=== PATIENT | female | born 1995 | race Caucasian/White ===

== ENCOUNTER 2020-10-13 16:11 | Emergency (ER) | payer BC ==
[2020-10-13] MEDS ORDERED: Ondansetron PF 4 MG/2 ML Vial ONE (16:52)
[2020-10-13 17:12] LABS: Bilirubin Neg (Negative); Blood, Urine Negative (Negative); Clarity Clear (Clear); Glucose, Urine (Dipstick) Normal (Negative); Ketone, Urine Negative (Negative); Leukocyte Negative (Negative); Nitrite Negative (Negative); Protein, Urine (Dipstick) Negative (Neg-Trace); Specific Gravity, Urine 1.015 (1.002-1.036); Urobilinogen Normal mg/dL (Less than 2)
[2020-10-13 17:12] LABS: #Basophils 0.1 10x3/uL (0.0-0.2); #Eosinphils 0.1 10x3/uL (0.0-0.5); #Monocytes 0.4 10x3/uL (0.0-1.1); #Neutrophils 4.4 10x3/uL (1.5-8.4); %Basophils 0.8 % (0.0-2.0); %Eosinophils 2.1 % (0.0-6.0); %Monocytes 6.7 % (0.0-10.0); %Neutrophils 71.2 % (40.0-75.0); Hemoglobin 11.6 g/dL (12.0-15.5); Mean Corpuscular HGB CONC 31.9 g/dL (32.0-36.0); Mean Corpuscular Volume 81.6 fl (81.6-98.3); Mean Platelet Volume 10.5 fl (7.4-10.4); Platelet Count 276 10x3/uL (150-450); RBC Distribution Width 15.1 % (11.5-14.5); Red Blood Cell (RBC) Count 4.46 10x6/uL (3.90-5.03); White Blood Cell (WBC) Count 6.1 10x3/uL (3.5-10.5)
[2020-10-13 17:26] LABS: ALT (SGPT) 103 U/L (8-55); AST (SGOT) 76 U/L (5-34); Albumin 4.6 g/dL (3.5-5.0); Alkaline Phosphatase 93 U/L (40-110); Anion Gap 14 mmol/L (10-20); BUN (Urea Nitrogen) 9 mg/dL (7.0-18.7); Bilirubin, Total 0.1 mg/dL (0.2-1.2); Calc. Creatinine Clearance 0 mL/min (70-130); Calcium 9.7 mg/dL (7.8-10.44); Carbon Dioxide 26 mmol/L (22-29); Chloride 103 mmol/L (98-107); Globulin 3.2 g/dL (2.4-3.5); Glucose 114 mg/dL (70-105); Lipase 19 U/L (8-78); Potassium 4.3 mmol/L (3.5-5.1); Protein, Total 7.8 g/dL (6.0-8.3); Sodium 139 mmol/L (136-145)
== END 2020-10-13 17:45 | disposition home or self-care (01) ==
LOC: CSHERS 16:11
DX: A04.72 Enterocolitis due to Clostridium difficile, not specified as recurrent (principal); E86.0 Dehydration
CPT/HCPCS: 80053; 81003; 83690; 85025; 96374; J0500; J2405

== ENCOUNTER 2022-05-04 11:45 | Emergency (ER) | payer OTHER ==
[2022-05-04 13:06] LABS: #Eosinphils 0.1 10x3/uL (0.0-0.5); #Monocytes 0.2 10x3/uL (0.0-1.1); #Neutrophils 3.1 10x3/uL (1.5-8.4); %Basophils 0.6 % (0.0-2.0); %Lymphocytes 28.5 % (18.0-47.0); %Monocytes 4.8 % (0.0-10.0); %Neutrophils 64.7 % (40.0-75.0); Hemoglobin 8.9 g/dL (12.0-15.5); Mean Corpuscular HGB CONC 30.7 g/dL (32.0-36.0); Mean Corpuscular Hemoglobin 22.4 pg (27.0-33.0); Mean Platelet Volume 9.8 fl (7.4-10.4); Platelet Count 317 10x3/uL (150-450); RBC Distribution Width 17.6 % (11.5-14.5); Red Blood Cell (RBC) Count 3.97 10x6/uL (3.90-5.03); White Blood Cell (WBC) Count 4.8 10x3/uL (3.5-10.5)
[2022-05-04 13:12] LABS: Bilirubin Neg (Negative); Blood, Urine Negative (Negative); Clarity Clear (Clear); Glucose, Urine (Dipstick) Normal (Negative); Ketone, Urine Negative (Negative); Leukocyte Negative (Negative); Nitrite Negative (Negative); Protein, Urine (Dipstick) Negative (Neg-Trace); Specific Gravity, Urine 1.015 (1.005-1.030); Urobilinogen Normal mg/dL (Less than 2)
[2022-05-04] MEDS ORDERED: Morphine 2 MG/ML VIAL ONE (13:17)
[2022-05-04] MEDS ORDERED: Promethazine HCl 25 MG/ML VIAL ONE (13:17)
[2022-05-04 13:24] LABS: ALT (SGPT) 14 U/L (8-55); AST (SGOT) 12 U/L (5-34); Alkaline Phosphatase 86 U/L (40-110); Anion Gap 14 mmol/L (10-20); BUN (Urea Nitrogen) 13 mg/dL (7.0-18.7); Bilirubin, Total 0.2 mg/dL (0.2-1.2); Calc. Creatinine Clearance 0 mL/min (70-130); Carbon Dioxide 22 mmol/L (22-29); Chloride 108 mmol/L (98-107); Estimated GFR 108; Globulin 2.7 g/dL (2.4-3.5); Glucose 201 mg/dL (70-105); Lipase 22 U/L (8-78); Potassium 3.8 mmol/L (3.5-5.1); Protein, Total 6.7 g/dL (6.0-8.3); Sodium 140 mmol/L (136-145)
[2022-05-04 13:36] LABS: Pregnancy Test - Urine (BHCG) Negative (Negative); Pregu Control Background? CLEAR/WHITE (CLR/WHITE); Pregu Control Bar Appear? YES (CONTROL BAR)
[2022-05-04 13:38] LABS: Specific Gravity 1.015 (1.002-1.036)
== END 2022-05-04 14:45 | disposition home or self-care (01) ==
LOC: CSHERS 11:45
DX: K86.1 Other chronic pancreatitis (principal); R11.2 Nausea with vomiting, unspecified
CPT/HCPCS: 80053; 81003; 81025; 83690; 85025; 96374; 96375; J2270; J2550

== ENCOUNTER 2025-02-16 11:33 | Emergency (ER) | payer SELFPAY ==
[2025-02-16] MEDS ORDERED: HYDROmorphone 0.5 MG/0.5 ML SYRINGE ONE ×2 (12:17→14:01)
[2025-02-16] MEDS ORDERED: Ondansetron PF 4 MG/2 ML Vial ONE (12:17)
[2025-02-16] MEDS ORDERED: Dexamethasone 10 MG/ML VIAL ONE (12:17)
[2025-02-16] MEDS ORDERED: Ketorolac Tromethamine 30 MG (1 mL) VIAL ONE (12:18)
[2025-02-16 13:13] LABS: #Basophils Less than 0.03 10x3/uL (0.0-0.2); #Eosinophils 0.13 10x3/uL (0.0-0.5); #Monocytes 0.57 10x3/uL (0.0-1.1); #Neutrophils 2.85 10x3/uL (1.5-8.4); %Basophils 0.1 % (0.0-2.0); %Eosinophils 1.8 % (0.0-6.0); %Lymphocytes 50.1 % (18.0-47.0); %Monocytes 7.9 % (0.0-10.0); %Neutrophils 39.8 % (40.0-75.0); Hematocrit 30.3 % (34.9-44.5); Hemoglobin 9.0 g/dL (12.0-15.5); Mean Corpuscular Hemoglobin 22.6 pg (27.0-33.0); Mean Corpuscular Volume 76.1 fL (81.6-98.3); Platelet Count 344 10x3/uL (150-450); Red Blood Cell (RBC) Count 3.98 10x6/uL (3.90-5.03); White Blood Cell (WBC) Count 7.17 10x3/uL (3.5-10.5)
[2025-02-16 13:37] LABS: ALT (SGPT) 12 U/L (Less than 34); AST (SGOT) 16 U/L (11-34); Albumin 3.8 g/dL (3.1-4.5); Alkaline Phosphatase 54 U/L (40-110); Anion Gap 13 mmol/L (10-20); BUN (Urea Nitrogen) 18 mg/dL (7.0-18.7); Bilirubin, Total 0.1 mg/dL (0.3-1.2); Calc. Creatinine Clearance 0 mL/min (70-130); Calcium 8.9 mg/dL (7.8-10.44); Carbon Dioxide 27 mmol/L (22-29); Chloride 105 mmol/L (98-107); Globulin 3.1 g/dL (2.4-3.5); Glucose 79 mg/dL (70-105); Lipase 29 U/L (8-78); Potassium 4.0 mmol/L (3.5-5.1); Sodium 141 mmol/L (136-145)
== END 2025-02-16 14:40 | disposition home or self-care (01) ==
LOC: CSHERS 11:33
DX: K86.1 Other chronic pancreatitis (principal)
CPT/HCPCS: 80053; 83690; 85025; 96374; 96375; 96376; J1100; J1171; J1885; J2405

== ENCOUNTER 2025-05-26 12:49 | Emergency (ER) | payer SELFPAY ==
[2025-05-26] MEDS ORDERED: diphenhydrAMINE 50 MG/ML VIAL ONE ×2 (13:41→15:30)
[2025-05-26] MEDS ORDERED: Dexamethasone 10 MG/ML VIAL ONE (13:41)
[2025-05-26] MEDS ORDERED: HYDROmorphone 0.5 MG/0.5 ML SYRINGE ONE ×2 (13:41→15:30)
[2025-05-26] MEDS ORDERED: Ketorolac Tromethamine 30 MG (1 mL) VIAL ONE (13:41)
== END 2025-05-26 16:10 | disposition home or self-care (01) ==
LOC: CSHERS 12:49
DX: K85.90 Acute pancreatitis without necrosis or infection, unspecified (principal); K86.1 Other chronic pancreatitis
CPT/HCPCS: J1100; J1171; J1200; J1885